=== PATIENT | female | born 1945 | race African-American/Black ===

== ENCOUNTER 2019-11-06 20:42 | Emergency (ER) | payer MEDICARE, OTHER ==
[~2019-11-06] VITALS: Ht 167.6 cm; Wt 77.1 kg
[2019-11-06] MEDS ORDERED: QUETIAPINE FUMA25 MG ORAL (20:51)
[2019-11-06 20:58] VITALS: BP 133/73
--- NOTE | 2019-11-06 20:58 | NUR ---
ED Nurse Note: pt leonel from [facility] [place] fall at facility; staff found pt on floor - fall from ground level. Pt VSS no s/s noted. Pt has hx of dementia. Pt aaox2-3. Awaiting ERMD at bedside. NO visible injuries noted.
--- NOTE | 2019-11-06 20:59 | NUR ---
ED Nurse Note: ERMD at beside
--- NOTE | 2019-11-06 20:59 | Emergency Room Report ---
History of Present Illness General Chief Complaint: Multiple Trauma/Fall Source: Patient Present Illness HPI This is a 74-year-old female with history of chronic right tib-fib fracture. She is in a cast. She also has a history of angina and psychiatric history. She presents with unwitnessed fall. She was found on the ground. Patient denies any complaint. No fever chills but no nausea no vomiting. No headache. No pain anywhere. Nothing made it better. Nothing made it worse. COVID-19 risk:Travel to affect: No Has patient experienced houser: No Allergies: Coded Allergies: No Known Allergies (Unverified , 11/06/19) Patient History Past Medical History: see triage record, old chart reviewed Past Surgical History: other Pertinent Family History: none Social History: Denies: smoking Now: No Immunizations: other Reviewed Nursing Documentation: PMH: Agreed; PSxH: Agreed Nursing Documentation-PMH Hx Hypertension: Yes Hx COPD: Yes Review of Systems Eye: Denies: eye pain, blurred vision ENT: Denies: ear pain, nose congestion, throat swelling Respiratory: Denies: cough, shortness of breath Cardiovascular: Denies: chest pain, palpitations Gastrointestinal: Denies: abdominal pain, diarrhea, nausea, vomiting Musculoskeletal: Denies: back pain, joint pain Skin: Denies: rash Neurological: Denies: headache, numbness Endocrine: Denies: increased thirst, increased urine Hematologic/Lymphatic: Denies: easy bruising All Other Systems: negative except mentioned in HPI Physical Exam Vital Signs Date Time Temp Pulse Resp B/P (MAP) Pulse Ox O2 Delivery O2 Flow Rate FiO2 11/06/19 20:46 97.9 93 18 133/73 (93) 95 Room Air Vitals unremarkable Sp02 EP Interpretation: reviewed, normal General Appearance: well appearing, no apparent distress, alert Head: normocephalic, atraumatic Eyes: bilateral eye PERRL, bilateral eye EOMI ENT: hearing grossly normal, normal pharynx Neck: full range of motion, supple, no meningismus Respiratory: chest non-tender, lungs clear, normal breath sounds Cardiovascular #1: regular rate, rhythm, no murmur Gastrointestinal: normal bowel sounds, non tender, no mass, no organomegaly, no bruit, non-distended Musculoskeletal: back normal, normal range of motion, other - Right leg in a cast Psychiatric: mood/affect normal Medical Decision Making Diagnostic Impression: Primary Impression: Fall Qualified Codes: W19.XXXA - Unspecified fall, initial encounter ER Course Patient presents with a fall. Unwitnessed. I see no obvious trauma. Because of her dementia and poor historian, I ordered a CT head. CT head is negative. Will discharge back to [facility]. She is already under fall precautions. CT/MRI/US Diagnostic Results CT/MRI/US Diagnostic Results : Imaging Test Ordered: CT head Impression Negative per radiologist Last Vital Signs Date Time Temp Pulse Resp B/P (MAP) Pulse Ox O2 Delivery O2 Flow Rate FiO2 11/06/19 20:46 97.9 93 18 133/73 (93) 95 Room Air Status: improved Disposition: XFER SNF Condition: Stable Additional Instructions: Follow-up with your doctor as needed in a week. Return if symptoms worsen. Fall precautions. David Carlos MD Nov 06, 2019 20:58
--- NOTE | 2019-11-06 21:00 | NUR ---
ED Nurse Note: pt taken to CT in stable condition vss, no s/s of distress noted.
--- NOTE | 2019-11-06 21:00 | NUR ---
ED Nurse Note: ERMD at bedside
--- NOTE | 2019-11-06 21:10 | NUR ---
ED Nurse Note: Pt returned from Ct in stable condition; vss no s/s of distress noted.
--- NOTE | 2019-11-06 21:16 | Diagnostic Imaging Report ---
Indications: History of unwitnessed fall, chronic right tibial-fibular fracture Technique: Spiral acquisitions obtained through the brain. Angled axial and coronal 5 x 5 mm slices were reconstructed. Total dose length product 1009 mGycm. CTDI vol(s) 53 mGy. Dose reduction achieved using automated exposure control Comparison: None. Findings: There is mild age-related enlargement of the ventricles and extra-axial CSF spaces. There is fairly extensive periventricular deep white matter low-attenuation, consistent with chronic microvascular ischemic changes. Otherwise normal minaya-white differentiation. No acute intracranial hemorrhage or edema. No mass effect nor midline shift. Intact calvarium. There is minimal ethmoid mucosal disease Visualized orbits and sinuses are otherwise unremarkable. Impression: Chronic and age-related changes Negative for acute intracranial bleed or mass effect This agrees with the preliminary interpretation provided overnight by [facility] teleradiology service. The CT scanner at [facility] is accredited by the [employer] and the scans are performed using protocols designed to limit radiation exposure to as low as reasonably achievable to attain images of sufficient resolution adequate for diagnostic evaluation.
--- NOTE | 2019-11-06 21:39 | NUR ---
ED Nurse Note: [facility] arrived for pt pickup
[2019-11-06 21:47] VITALS: BP 133/73
--- NOTE | 2019-11-06 21:47 | NUR ---
ER DISCHARGE NOTE: Patient is cleared to be discharged to [facility] per ERMD, pt is aox4, on room air, with stable vital signs. pt was given dc instructions, pt was able to verbalize understanding, pt id band removed. pt taken by ambulance via gurney. pt took all belongings. Report given to [facility] ambulance.
== END 2019-11-06 21:47 ==
LOC: EDBD 20:42 → EMR 21:45
DX: S82.491D Other fracture of shaft of right fibula, subsequent encounter for closed fracture with routine healing (principal); W19.XXXD Unspecified fall, subsequent encounter; J44.9 Chronic obstructive pulmonary disease, unspecified; I10 Essential (primary) hypertension
CPT/HCPCS: 70450; 99284

== ENCOUNTER 2019-11-07 00:49 | Emergency (ER) | payer MEDICARE, OTHER ==
[~2019-11-07] VITALS: Ht 170.2 cm; Wt 77.1 kg
[~2019-11-07 00:49] MED LIST: QUETIAPINE FUMA25 MG ORAL
--- NOTE | 2019-11-07 01:00 | NUR ---
ED Nurse Note: pt RUDDY ([facility]) after being previously admitted to the ED a few hours before (11/06/20191999) d/t no longer having placement at the original facility she was placed in. VSS, no s/s of distress noted. Pt aao x 2; hx of dementia. ERMD aware.
--- NOTE | 2019-11-07 01:12 | Emergency Room Report ---
History of Present Illness General Chief Complaint: Lower Extremity Injury Source: Patient Present Illness HPI This is 74-year-old female with a history of chronic right tib-fib fracture. She was here earlier with chief complaint of a fall. CT scan was done was negative. She had an [facility]mb[facility] from a [facility]. [facility] to [facility]. It turned out that she is at a boarding care. We called the boarding care there was no response. The admitting supervisor said that there is no one to accept her so they sent her back here. She presented here with chief complaint from a fall. She has no other complaint. No other injury. No pain. No fever chills but no nausea no vomiting. COVID-19 risk:Travel to affect: No Has patient experienced houser: No Allergies: Coded Allergies: No Known Allergies (Unverified , 11/06/19) Patient History Past Medical History: see triage record, old chart reviewed Past Surgical History: other Pertinent Family History: none Social History: Denies: smoking Now: No Immunizations: other Reviewed Nursing Documentation: PMH: Agreed; PSxH: Agreed Nursing Documentation-PMH Hx Hypertension: Yes Hx COPD: Yes Review of Systems Eye: Denies: eye pain, blurred vision ENT: Denies: ear pain, nose congestion, throat swelling Respiratory: Denies: cough, shortness of breath Cardiovascular: Denies: chest pain, palpitations Gastrointestinal: Denies: abdominal pain, diarrhea, nausea, vomiting Musculoskeletal: Denies: back pain, joint pain Skin: Denies: rash Neurological: Denies: headache, numbness Endocrine: Denies: increased thirst, increased urine Hematologic/Lymphatic: Denies: easy bruising All Other Systems: negative except mentioned in HPI Physical Exam Vital Signs Date Time Temp Pulse Resp B/P (MAP) Pulse Ox O2 Delivery O2 Flow Rate FiO2 11/07/19 00:51 97.9 94 16 135/73 (93) 96 Room Air Vitals normal Sp02 EP Interpretation: reviewed, normal General Appearance: well appearing, no apparent distress, alert Head: normocephalic, atraumatic Eyes: bilateral eye PERRL, bilateral eye EOMI ENT: hearing grossly normal, normal pharynx Neck: full range of motion, supple, no meningismus Respiratory: chest non-tender, lungs clear, normal breath sounds Cardiovascular #1: regular rate, rhythm, no murmur Gastrointestinal: normal bowel sounds, non tender, no mass, no organomegaly, no bruit, non-distended Musculoskeletal: back normal, normal range of motion, other - Leg with a cast on right Psychiatric: mood/affect normal Medical Decision Making Diagnostic Impression: Primary Impression: Fall Qualified Codes: W19.XXXA - Unspecified fall, initial encounter ER Course Here with a fall. No injury. I did a CT scan earlier that was negative. We will keep her here until morning still consider back to her boarding care. Last Vital Signs Date Time Temp Pulse Resp B/P (MAP) Pulse Ox O2 Delivery O2 Flow Rate FiO2 11/07/19 00:51 97.9 94 16 135/73 (93) 96 Room Air Status: improved Disposition: HOME, SELF-CARE Additional Instructions: Follow-up with your doctor in 7 days as needed. Return if worse. David Carlos MD Nov 07, 2019 01:12
[2019-11-07 01:13] VITALS: BP 135/73
[2019-11-07 02:48] VITALS: BP 130/74
--- NOTE | 2019-11-07 02:55 | NUR ---
ED Nurse Note: pt resting in bed, no s/s of distress noted.
[2019-11-07 04:10] VITALS: BP 136/80
--- NOTE | 2019-11-07 04:25 | NUR ---
ED Nurse Note: report given to CAIO Tang. Pt in stable condition, VSS, no s/s of distress noted. Pt transferred from bed 08 to bed 06.
--- NOTE | 2019-11-07 04:33 | NUR ---
ED Nurse Note: PAtient is resting, awake with no complaints. Patient offered an additional blanket but is not cold at this time. will continue to monitor until placement in the morning.
--- NOTE | 2019-11-07 05:44 | NUR ---
ED Nurse Note:\ Patient is sleeping with no s/s of acute distress. Will continue to monitor.
--- NOTE | 2019-11-07 06:05 | NUR ---
ED Nurse Note: Perineal care provided and bedding changed, patient had a bowel movement.
--- NOTE | 2019-11-07 07:06 | NUR ---
ED Nurse Note: Patient provided with bedside commode for additional bowel movement. Bedding changed again. Patient helped back to bed by satellite tv technician installer and RN.
--- NOTE | 2019-11-07 07:08 | NUR ---
HAND-OFF: Report given to Meghan KEARNEY.
[2019-11-07 08:24] VITALS: BP 132/78
--- NOTE | 2019-11-07 10:00 | NUR ---
PRESIDENT AND CEO NOTE Pt received following information; The rd manager:[phone], The facility foundation engineer: Cheryl Nance [phone], cement and concrete plant worker Bal [phone]. CAROLINE attempted to call the rd manager [phone] and the call was not answered. CAROLINE spoke w/ Bal, web content & social media manager [phone] that such facility is a shared collaborative housing and there is no one who could accept pt for late night DC. Bal was very irritable, angry and aggressive. CAROLINE informed Bal that pt is medically cleared. Bal stated "send back her there". Nursing staff informed. Signed: 11/07/19 at 1002 by AMRIK VELAZQUEZ <Co-Signature Required>
[2019-11-07 12:00] VITALS: BP 125/73
== END 2019-11-07 11:30 | disposition home or self-care (01) ==
LOC: EDUNIT# 00:49 → EDBD 00:49 → EMR 01:38
DX: Z00.00 Encounter for general adult medical examination without abnormal findings (principal); J44.9 Chronic obstructive pulmonary disease, unspecified; I10 Essential (primary) hypertension; W19.XXXA Unspecified fall, initial encounter; Y92.9 Unspecified place or not applicable
CPT/HCPCS: 99283